=== PATIENT | female | born 1980 | race Hispanic/Latino ===

== ENCOUNTER 2019-03-30 05:20 | Inpatient (IN) ==
[2019-03-30] MEDS ORDERED: STADOL IV PRN (05:23)
[2019-03-30] MEDS ORDERED: TYLENOL PO PRN (05:23)
[2019-03-30] MEDS ORDERED: REGLAN PO ONE (05:23)
[2019-03-30] MEDS ORDERED: PEPCID PO ONE ×2 (05:23→22:00)
[2019-03-30] MEDS ORDERED: ZOFRAN IV PRN (05:23)
[2019-03-30] MEDS ORDERED: KEFZOL 1 GM/D5W 1 GM/50 ML IVPB IV PRN (05:23)
[2019-03-30] MEDS ORDERED: PEPCID PO PRN (05:23)
[2019-03-30] MEDS ORDERED: PEPCID IV PRN (05:23)
[2019-03-30] MEDS ORDERED: PITOCIN 30 UNITS/NS 30 UNIT/500 ML IV.SOLN IV SCH (05:30)
[2019-03-30] MEDS ORDERED: SODIUM CHLORIDE 0.9% INJ SCH (05:30)
[2019-03-30] MEDS: LR 1,000 ML IV SCH ×3 (05:45→12:42)
[2019-03-30 06:08] LABS: URINE SOURCE VOIDED
[2019-03-30 06:16] LABS: BASO# 0.02 X1000 (0.0-0.2); BASO% 0.2 % (0.0-0.8); EOS# 0.09 X1000 (0.0-0.7); EOS% 0.9 % (0.0-10.0); HEMATOCRIT 32.8 % (37.0-47.0); HEMOGLOBIN 10.7 g/dL (12.0-16.0); IMM GRAN# 0.09 X1000 (0.0-0.04); IMM GRAN% 0.9 % (0.0-0.5); LYMPH# 2.35 X1000 (1.2-3.4); LYMPH% 22.8 % (20.5-51.1); MCH 27.2 PG (27-31); MCHC 32.6 g/dL (33-37); MCV 83.2 FL (81-99); MONO# 0.65 X1000 (0.11-0.59); MONO% 6.3 % (1.7-9.3); NEUT% 68.9 % (42.2-75.2); PLT 274 X1000 (130-400); RBC 3.94 XMIL (4.2-5.4); RDW 17.9 % (11.5-14.5)
[2019-03-30 07:02] LABS: BILIRUBIN URINE NEGATIVE (NEGATIVE); BLOOD URINE NEGATIVE (NEGATIVE); CLARITY SL. CLOUDY (CLEAR); COLOR YELLOW; GLUCOSE URINE NEGATIVE (NEGATIVE); KETONE URINE NEGATIVE (NEGATIVE); LEUKOCYTES URINE 2+ (NEGATIVE); NITRITE URINE NEGATIVE (NEGATIVE); PH URINE 6.5; PROTEIN URINE TRACE mg/dL (NEGATIVE); UROBILINOGEN URINE NORMAL
[2019-03-30 07:30] LABS: UR AMPHETAMINES QUAL NONE DETECTED (NONE DETECT); UR BARBITUATES QUAL NONE DETECTED (NONE DETECT); UR BENZODIAZEPIN QUAL NONE DETECTED (NONE DETECT); UR CANNABINOIDS QUAL NONE DETECTED (NONE DETECT); UR COCAINE QUAL NONE DETECTED (NONE DETECT); UR METHADONE QUAL NONE DETECTED (NONE DETECT); UR METHAMPHETAMINE QUAL NONE DETECTED (NONE DETECT); UR OPIATES QUAL NONE DETECTED (NONE DETECT); UR OXYCODONE QUAL NONE DETECTED (NONE DETECT); UR PCP QUAL NONE DETECTED (NONE DETECT); UR PROPOXYPHENE QUAL NONE DETECTED (NONE DETECT); UR TCA QUAL NONE DETECTED (NONE DETECT)
--- NOTE | 2019-03-30 08:08 | HISTORY AND PHYSICAL ---
HISTORY OF PRESENT ILLNESS: Patient is a 38-year-old, female, G 8, P 7, who is at 39 weeks gestation, and her care is significant for in vitro fertilization after she had previous tubal ligation, advanced maternal age and grand multiparity. She also has hypothyroidism that has been managed during the . PAST MEDICAL HISTORY: Significant for hypothyroidism. PAST SURGICAL HISTORY: Previous tubal ligation. PAST OB HISTORY: G 8, P 7, spontaneous vaginal delivery x7 proven to 8 pounds. FILM MASKER HISTORY: Menarche at age 11. FAMILY HISTORY: Significant for high blood pressure. REVIEW OF SYSTEMS: All systems reviewed and noncontributory. SOCIAL HISTORY: Tobacco use: None. Alcohol use: None. MEDICATIONS: Synthroid 125 mcg daily, vitamins and iron pills also daily. ALLERGIES: No known drug allergies. PHYSICAL EXAMINATION: VITAL SIGNS: Height 5 feet 7 inches, weight 253 pounds. Temperature 98.4 degrees, pulse of 68, respirations 14, blood pressure 132/81. heart rate was in the 130s with good [id number]-[id number] variability. HEENT: Pupils equal, round, reactive to light and accommodation. Extraocular movements intact. Oropharynx clear. NECK: Supple. No thyromegaly. LUNGS: Clear to auscultation. HEART: Regular rate and rhythm. ABDOMEN: Gravid, nontender. CERVICAL EXAM: Cervix was 1.5 cm, 50% effaced, -2 station. Membranes were intact. EXTREMITIES: No clubbing, cyanosis or edema noted. NEUROLOGIC: Cranial nerves 2-12 grossly intact. Motor 5/5. ASSESSMENT AND PLAN: A 38-year-old, 8, para 7 at 39 weeks gestation for induction of labor. The patient will be started on Pitocin. Her group B strep status is negative. cc: Mauricio Ro III, MD
[2019-03-30] MEDS ORDERED: NAROPIN 0.2% INJ ONE (08:15)
[2019-03-30] MEDS ORDERED: FENTANYL-BUPIV-NS 2 MCG-0.1% 200 ML EPIDURAL SCH (09:00)
[2019-03-30] MEDS ORDERED: XYLOCAINE-MPF 1% INJ ONE (12:19)
[2019-03-30] MEDS ORDERED: MINERAL OIL TOP PRN (12:20)
[2019-03-30] MEDS ORDERED: NAROPIN 0.5% INJ ONE (13:56)
[2019-03-30] MEDS ORDERED: REGLAN IV ONE (22:00)
[2019-03-30] MEDS ORDERED: BICITRA PO ONE (22:00)
[2019-03-30] MEDS ORDERED: NESACAINE-MPF 3% INJ ONE (22:22)
[2019-03-30] MEDS ORDERED: DURAMORPH ONE (22:45)
[2019-03-30] MEDS ORDERED: PITOCIN ONE (23:27)
[2019-03-30] MEDS ORDERED: TORADOL ONE (23:27)
[2019-03-30] MEDS ORDERED: ZOFRAN ONE (23:27)
[2019-03-30] MEDS ORDERED: SODIUM CHLORIDE 0.9% 20 ML ONE (23:27)
[2019-03-30] MEDS ORDERED: DEMEROL PO PRN ×2 (23:58)
[2019-03-30] MEDS ORDERED: PITOCIN 20 UNITS/NS 20 UNITS/1,000 ML IV.SOLN IV ONE (23:58)
[2019-03-30] MEDS ORDERED: M-M-R II VACCINE SUBQ ONE (23:58)
[2019-03-30] MEDS ORDERED: MYLICON PO PRN (23:58)
[2019-03-30] MEDS ORDERED: DULCOLAX PR PRN (23:58)
[2019-03-30] MEDS ORDERED: BOOSTRIX VACCINE IM ONE (23:58)
[2019-03-30] MEDS ORDERED: NORCO-5 PO PRN (23:58)
[2019-03-30] MEDS ORDERED: DEMEROL IM PRN (23:58)
[2019-03-30] MEDS ORDERED: PHENERGAN IM PRN (23:58)
[2019-03-30] MEDS ORDERED: HYDROXYZINE IM PRN (23:58)
[2019-03-30] MEDS ORDERED: ATARAX PO PRN (23:58)
[2019-03-30] MEDS ORDERED: PITOCIN IM PRN (23:58)
[2019-03-30] MEDS ORDERED: AMBIEN PO PRN (23:58)
--- NOTE | 2019-03-31 02:20 | OPERATIVE NOTE ---
PROCEDURE DATE: 03/30/2019 PREOPERATIVE DIAGNOSIS: Intrauterine (IUP) at 39 weeks with persistent OP presentation, maternal exhaustion, and failure to progress. POSTOPERATIVE DIAGNOSES: 1. Intrauterine (IUP) at 39 weeks with persistent OP presentation, maternal exhaustion, and failure to progress. 2. Operative delivery of a male , 10 pounds 7 ounces, with 's of 9 and 9 at 2302 hours on 03/30/2019. PROCEDURE: Primary low transverse . SURGEON: Dr. Mauricio Ro III. ASSIST: OR team. ANESTHESIA: Spinal, Dr. Vo. FINDINGS: Normal-appearing uterus, tubes, and ovaries. Previous tubal ligation was noted. OP presentation upon entry into the uterus was noted. COMPLICATIONS: None. ESTIMATED BLOOD LOSS: 700 mL. SPECIMENS: None. Wilson to straight drain. COUNTS: All counts were correct x3. INDICATIONS: Patient is a 38-year-old, white female, , who was induced at 39 weeks gestation. However, she was able to make it complete but unable to push due to maternal exhaustion and persistent OP, and failure to progress. The patient was counseled about the risks of surgery, including bleeding, infection, bowel or bladder injury. PROCEDURE REPORT: Patient was taken to the OR, and epidural had revealed wriggled free, so a spinal anesthetic was then employed by Dr. Vo. Patient was then placed in supine position with a roll under right hip. Then, she was prepped and draped in a sterile fashion. Adequate anesthesia was noted on the lower abdomen using Allis clamps. Then, a Pfannenstiel skin incision was made using a scalpel. This was taken down sharply to the fascia layer. A small bi was made in the rectus fascia. The fascial incision was then extended bilaterally but with curved Hobson scissors. Then, sharp and blunt dissection of the superior and inferior aspects of the rectus fascia was performed. Rectus muscles divided in the midline. Peritoneal layer was entered bluntly. The peritoneal incision was extended superiorly and inferiorly with care taken to avoid the bladder. Bladder blade was placed into the abdominal cavity. Bladder reflection was created using Metzenbaum scissors and then bladder blade was replaced back into the abdominal cavity. The scalpel was then used to make a transverse incision on the lower uterine segment. Clear fluid was noted. The surgeon's fingers then extended the incision bilaterally. Then, the head was then elevated toward the hysterotomy site. OP presentation was noted. Then the head was delivered atraumatically with gentle fundal pressure. Bulb suction of nose and mouth, and then the rest the body was delivered atraumatically with gentle fundal pressure. The umbilical cord was clamped twice and cut. handed to nursery nurse in attendance for delivery. Cord blood sample was obtained at this time. Placenta was then manually extracted. Uterus was then exteriorized. Wet lap was placed around the uterus. Dry lap was then used to curette the uterine cavity of clots and debris. Uterine incision was then closed using 0 chromic in a running, locking fashion x1. Area of oozing on the right corner as well as left corner were made hemostatic with several [id number]-[id number] stitches. The posterior cul-de-sac was then irrigated copiously, and then the uterus was replaced back into the abdominal cavity. There was noted that the patient had a previous tubal ligation, and this was noted on the scarring on both sides. The pericolic gutters were then cleansed using moist lap sponges, and the uterine incision and bladder reflection were inspected, and good hemostasis was noted. Peritoneal layer was then closed using 2-0 chromic in a running fashion x1, and 2 interrupted stitches helped to approximate the rectus muscle. The fascia layer was then closed using 0 PDS in a running fashion x1. Subcutaneous layer was then reapproximated using interrupted stitches of 3-0 plain, and then the skin was reapproximated using simon after it had been cleansed with irrigation, and electrocautery was used to obtain hemostasis. All counts were correct x3. Patient tolerated the procedure well, was taken to recovery room in stable condition. cc: Mauricio Ro III, MD
[2019-03-31] MEDS: PITOCIN 10 UNITS/NS 1,000 ML IV SCH ×2 (04:00→11:26)
[2019-03-31] MEDS: LR 1,000 ML IV SCH ×2 (05:36→05:38)
[2019-03-31] MEDS: TORADOL IV SCH ×3 (06:06→19:40)
--- NOTE | 2019-03-31 07:38 | OB/GYN PROGRESS NOTE ---
Progress Note OB - . OB Progress Note: Vital Signs - 24 hr 03/30/19 09:58 03/30/19 11:00 03/30/19 15:00 Temperature 97.8 F 98.2 F 98.7 F Pulse Rate 78 70 68 Pulse Rate [Left Radial] Respiratory Rate 16 16 16 Blood Pressure 120/81 118/68 113/72 Blood Pressure [Left Arm] O2 Sat by Pulse Oximetry 99 97 99 03/30/19 17:00 03/30/19 19:01 03/30/19 23:50 Temperature 98.7 F 98.8 F 97 F L Pulse Rate 83 76 Pulse Rate [Left Radial] 76 Respiratory Rate 20 18 Blood Pressure 158/73 118/56 Blood Pressure [Left Arm] 118/56 O2 Sat by Pulse Oximetry 97 99 03/31/19 00:00 03/31/19 00:10 03/31/19 00:30 Temperature Pulse Rate 86 81 80 Pulse Rate [Left Radial] Respiratory Rate 18 18 18 Blood Pressure Blood Pressure [Left Arm] 112/60 113/57 130/60 O2 Sat by Pulse Oximetry 100 100 96 03/31/19 00:40 03/31/19 00:50 Temperature Pulse Rate 80 67 Pulse Rate [Left Radial] Respiratory Rate 18 18 Blood Pressure 117/55 Blood Pressure [Left Arm] 122/65 117/55 O2 Sat by Pulse Oximetry 98 97 Laboratory Results - last 24 hr 03/30/19 05:30 Urine Opiates Screen NONE DETECTED Ur Oxycodone Screen NONE DETECTED Urine Methadone Screen NONE DETECTED U Propoxyphene Qual NONE DETECTED Ur Barbituates Screen NONE DETECTED Ur Tricyclics Screen NONE DETECTED Ur Phencyclidine Scrn NONE DETECTED Ur Amphetamines Screen NONE DETECTED U Methamphetamines Scrn NONE DETECTED U Benzodiazepines Scrn NONE DETECTED Urine Cocaine Screen NONE DETECTED U Cannabinoids Screen NONE DETECTED The pt is doing well. Pain controlled. Tolerating po well no N/V O: Gen: AAOx3 NAD CV: RRR no g/m/r Lungs: CTAB no w/r/r Abd: +BS soft dennis tender bandage covering the incision Ext: no c/c/e Labs pending A: POD#1 s/p PLTCS LGA Grand multiparity P: Cont post-op mgmt
[2019-03-31 08:35] LABS: BASO# 0.02 X1000 (0.0-0.2); BASO% 0.1 % (0.0-0.8); EOS# 0.02 X1000 (0.0-0.7); EOS% 0.1 % (0.0-10.0); HEMATOCRIT 26.3 % (37.0-47.0); HEMOGLOBIN 8.3 g/dL (12.0-16.0); IMM GRAN# 0.05 X1000 (0.0-0.04); IMM GRAN% 0.3 % (0.0-0.5); LYMPH# 2.28 X1000 (1.2-3.4); LYMPH% 13.6 % (20.5-51.1); MCH 26.9 PG (27-31); MCHC 31.6 g/dL (33-37); MCV 85.1 FL (81-99); MONO# 1.26 X1000 (0.11-0.59); MONO% 7.5 % (1.7-9.3); MPV 11.9 FL (7.4-10.4); NEUT# 13.18 X1000 (1.4-6.5); NEUT% 78.4 % (42.2-75.2); PLT 237 X1000 (130-400); RBC 3.09 XMIL (4.2-5.4); RDW 18.4 % (11.5-14.5); WBC 16.81 X1000 (4.8-10.8)
[2019-03-31] MEDS: MYLICON PO SCH ×4 (09:52→22:56)
[2019-03-31] MEDS: SYNTHROID PO SCH ×2 (09:53)
[2019-03-31] MEDS: NORCO-10 PO PRN ×2 (15:23→19:47)
[2019-03-31] MEDS: MOTRIN PO PRN (19:47)
[2019-03-31] MEDS: PERICOLACE PO SCH (22:56)
[2019-03-31] MEDS ORDERED: LR 1,000 ML IV SCH (23:58)
[2019-04-01] MEDS: MOTRIN PO PRN ×3 (03:13→23:07)
[2019-04-01] MEDS: NORCO-10 PO PRN ×4 (03:14→16:13)
[2019-04-01] MEDS: SYNTHROID PO SCH ×2 (07:43)
[2019-04-01] MEDS: MYLICON PO SCH ×4 (09:33→23:07)
--- NOTE | 2019-04-01 11:01 | OB/GYN PROGRESS NOTE ---
Progress Note OB - . OB Progress Note: Vital Signs - 24 hr 03/31/19 12:15 03/31/19 15:20 03/31/19 20:59 Temperature 98.4 F 99 F 96.9 F L Pulse Rate 84 95 H 99 H Respiratory Rate 16 18 20 Blood Pressure 104/55 127/58 115/56 O2 Sat by Pulse Oximetry 97 98 97 04/01/19 00:57 04/01/19 04:19 04/01/19 07:35 Temperature 96.4 F L 96.8 F L 96.5 F L Pulse Rate 78 91 H 78 Respiratory Rate 18 18 16 Blood Pressure 133/68 118/56 110/55 O2 Sat by Pulse Oximetry 99 98 98 POD 2 primary c.section. No complaints. Breast feeding. Abd: soft and nontender Incision is dry and intact Fundus is firm and mild tenderness No calf tenderness. A/P: Stable . probable discharge tomorrow.
[2019-04-01] MEDS: PERICOLACE PO SCH (23:07)
[2019-04-02] MEDS: NORCO-10 PO PRN ×2 (07:51→14:29)
[2019-04-02] MEDS: MOTRIN PO PRN (07:51)
[2019-04-02 07:55] VITALS: BP 118/69
[2019-04-02] MEDS: SYNTHROID PO SCH ×2 (08:02)
[2019-04-02] MEDS: MYLICON PO SCH (10:10)
--- NOTE | 2019-04-03 11:25 | DISCHARGE SUMMARY ---
ADMISSION DATE: 03/30/2019 DISCHARGE DATE: 04/02/2019 ADMISSION DIAGNOSIS: A 38-year-old, Jennifer Meadows at 39 weeks gestation for induction of labor. FINAL DIAGNOSIS: A 38-year-old, Jennifer Meadows at 39 weeks gestation for induction of labor with operative delivery of a male infant, 10 pounds 7 ounces with Apgars of 9 and 9 at 2302 on 03/30/2019. PROCEDURES: Primary low-transverse section. BRIEF HISTORY: The patient is 38-year-old female, Jennifer Meadows, who is at 39 weeks gestation. care is significant for in-vitro fertilization after she had a previous tubal ligation. Patient also has advanced maternal age and grand multiparity. She is also being treated for hypothyroidism that is continuing to be managed during . PAST MEDICAL HISTORY: Significant for hypothyroidism. PAST SURGICAL HISTORY: Previous tubal ligation. PAST OBSTETRICAL HISTORY: Jennifer Meadows, spontaneous vaginal delivery x7 proven 8 pounds. GYNECOLOGICAL HISTORY: Menarche at age 11. FAMILY HISTORY: Significant for high blood pressure. REVIEW OF SYSTEMS: All systems reviewed and noncontributory. SOCIAL HISTORY: Tobacco use none. Alcohol use none. MEDICATIONS: Synthroid 125 mcg daily, vitamins and iron pills also daily. ALLERGIES: No known drug allergies. PHYSICAL EXAMINATION: Vital Signs: Height 5 feet 7 inches, weight 253 pounds. Temperature 98.4 degrees, pulse 68, respirations 14. Blood pressure 132/81. heart rate was in the 130s with good [id number] variability. HEENT: Pupils equal, round, reactive to light and accommodation. Extraocular movements intact. Oropharynx clear. Neck: Supple. No thyromegaly. Lungs: Clear to auscultation. Heart: Regular rate and rhythm. Abdomen: Gravid, nontender. Pelvic: Cervix was 1.5 cm, 50% effaced, -2 station. Membranes were intact. Extremities: No clubbing, cyanosis, or edema noted. Neurologic: Cranial nerves 2-12 grossly intact. Motor 5 out of 5. ASSESSMENT AND PLAN: A 38-year-old, Jennifer Meadows at 39 weeks gestation for induction of labor. Group B strep status is negative. HOSPITAL COURSE: The patient had Pitocin induction of labor and her labor progressed until she got to complete. However, persistent OP presentation, maternal exhaustion and failure to progress precluded from vaginal delivery and discussed with patient about the need for operative delivery. Patient counseled about the risks of surgery including bleeding, infection, bowel or bladder injury. The patient then had operative delivery of a male , 10 pounds 7 ounces with Apgars of 9 and 9 at 2302 on 03/30/2019. POSTOPERATIVE COURSE: The patient's postoperative hemoglobin was 8.3, hematocrit 26.3. She was making clear urine at the time the [place] was discontinued. She became ambulatory and was advanced on her diet, and then on postoperative day #2, she was eating, ambulating, mild lochia and also had positive flatus. The patient had stable vital signs and was afebrile. [place] that she could be discharged home at this time. DISCHARGE PLANS: The patient will be discharged home and follow up on 04/06/2019 for staple removal. The patient was instructed on pelvic rest and lifting precautions for 6 weeks. DISCHARGE MEDICATIONS: She is to continue with her own Synthroid at 125 mcg daily. She was given a prescription for Humphreys 10, dispense 20 with no refills. Colace 100 mg, dispense 30. Motrin 800 mg, dispense 30. Iron sulfate 325 mg, dispense 30. cc: MD JIMMY Rios III
== END 2019-04-02 15:45 | disposition home or self-care (01) | DRG 788 ==
LOC: P.LD 05:20
PROVIDERS: ADMIT Obstetrics & Gynecology; ATTEND Obstetrics & Gynecology